=== PATIENT | female | born 1995 ===

== ENCOUNTER 2018-06-30 03:16 | Inpatient (IN) | payer SELFPAY ==
[2018-06-30] MEDS ORDERED: Sodium Chloride 0.9% 10 ML Syringe FLUSH PRN (07:25)
[2018-06-30] MEDS ORDERED: Lidocaine 1% 50 ML MDV INJECT PRN (07:25)
[2018-06-30] MEDS ORDERED: Misoprostol 200 MCG Tab PO PRN (07:25)
[2018-06-30] MEDS ORDERED: Nalbuphine 10 MG/1 ML Vial IVPUSH PRN (07:25)
[2018-06-30] MEDS ORDERED: Tranexamic Acid 1,000 MG in Sodium Chloride 0.9% 100 ML IV PRN (07:25)
[2018-06-30] MEDS ORDERED: Sodium Chloride 0.9% 2.5 ML Syringe FLUSH PRN (07:25)
[2018-06-30] MEDS ORDERED: Water For Irrigation,Sterile 1,000 ML Container IRR PRN (07:25)
[2018-06-30] MEDS ORDERED: Carboprost Tromethamine 250 MCG/1 ML Amp IM PRN (07:25)
[2018-06-30] MEDS ORDERED: Methylergonovine 0.2 MG/1 ML Amp IM PRN (07:25)
[2018-06-30] MEDS ORDERED: Butorphanol 1 MG/ML SDV IVPUSH PRN (07:25)
[2018-06-30] MEDS ORDERED: Oxytocin/0.9 % Sodium Chloride 30 UNIT/500 ML BAG IV SCH (07:30)
[2018-06-30] MEDS: Lactated Ringers 1,000 ML IV SCH ×2 (07:35→08:06)
[2018-06-30] MEDS ORDERED: Acetaminophen 500 MG Tab PO PRN ×2 (08:33)
[2018-06-30] MEDS ORDERED: Bisacodyl 10 MG Supp RECTAL PRN (08:33)
[2018-06-30] MEDS ORDERED: Ibuprofen 400 MG Tab PO PRN (08:33)
[2018-06-30] MEDS ORDERED: Benzocaine/Menthol 20%-0.5% Spray 78 GM Cannister TOP PRN (08:33)
[2018-06-30] MEDS ORDERED: oxyCODONE 5 MG Tab PO PRN (08:33)
[2018-06-30] MEDS ORDERED: Witch Hazel Medicated Pads 40/Jar TOP PRN (08:33)
[2018-06-30] MEDS ORDERED: Lanolin 100% Cream 7 GM Tube TOP PRN (08:33)
--- NOTE | 2018-06-30 08:40 | PCM.LDHP ---
L&D History of Present Illness - General Date of Service: 06/30/18 Admit Problem/Dx: Patient Status Order with Admit Dx/Problem 06/30/18 03:51 Patient Status [ADT] Routine 06/30/18 08:34 Patient Status [ADT] Routine Admission Diagnosis/Problem Admission Diagnosis/Problem - planned 06/30/18 08:35 22yo EDC 06/28/2018 40 2/7 weeks, Come in active labor and delivers prior to getting epidural. A+, RI, GBS neg Source of Information: Patient History Limitations: Reports: No Limitations - History of Present Illness Improves with: Reports: None Worsens with: Reports: None Associated Symptoms: Reports: N - Related Data Allergies/Adverse Reactions: Allergies Allergy/AdvReac Type Severity Reaction Status Date / Time No Known Allergies Allergy Verified 06/30/18 03:46 Home Medications: Home Meds . [No Known Home Meds] 01/09/15 [History] Past Medical History HEENT History: Reports: None Cardiovascular History: Reports: Heart Murmur, Syncope, Other (See Below) Other Cardiovascular History: pt. states, "can feel my heart pounding and beating irregularly at times; get dizzy and weak also when it happens". 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 also states, "have had a heart murmur since I was a baby but it has never bothered me". Respiratory History: Reports: Bronchitis, Recurrent Other Respiratory History: Pt. denies being on any medications for the bronchitis. [employer] History: Reports: Psychiatric History: Reports: None - Infectious Disease History Infectious Disease History: Reports: Other (See Below) Other Infectious Disease History: exposed to pertussis during this - Past Surgical History HEENT Surgical History: Reports: None Social & Family History - Family History Family Medical History: Noncontributory Respiratory: Reports: Asthma Other Respiratory Family Hisory: Pt. states "father has asthma" - Tobacco Use Smoking Status *Q: Never Smoker Second Hand Smoke Exposure: No H&P Review of Systems - Review of Systems: Review Of Systems: See Below General: Reports: No Symptoms HEENT: Reports: No Symptoms Pulmonary: Reports: No Symptoms Cardiovascular: Reports: No Symptoms Gastrointestinal: Reports: No Symptoms Genitourinary: Reports: No Symptoms Musculoskeletal: Reports: No Symptoms Skin: Reports: No Symptoms Psychiatric: Reports: No Symptoms Neurological: Reports: No Symptoms Hematologic/Lymphatic: Reports: No Symptoms Immunologic: Reports: No Symptoms L&D Exam - Exam Exam: See Below - Vital Signs Weight: 77.111 kg - OB Specific Contraction Intensity: Strong Movement: Active Heart Tones: Present Heart Rate (FHR) Variability: Moderate (6-25 bmp) Presentation: Vertex - Ellis Score Ellis Score Cervix Position: Anterior Ellis Score Consistency: Soft Ellis Score Effacement: >80% Ellis Score Dilation: > 5 cm Ellis Score Infant's Station: +1, +2 Ellis Score Total: 13 - Exam General: Alert, Oriented, Cooperative, Mild Distress HEENT: Hearing Intact Lungs: Clear to Auscultation, Normal Respiratory Effort Cardiovascular: Regular Rate, Regular Rhythm, Normal S1, Normal S2 Rectal Exam: Deferred Genitourinary: Normal external exam, Cervical dilitation Back Exam: Normal Inspection, Full Range of Motion Extremities: Normal Inspection, Normal Range of Motion, Non-Tender, No Pedal Edema, Normal Capillary Refill Skin: Warm, Dry, Intact Neurological: Cranial Nerves Intact, Reflexes Equal Bilateral, Strength Equal Bilateral, Normal Speech, Normal Tone Psychiatric: Alert, Normal Affect, Normal Mood - Patient Data Lab Results Last 24 hrs: Laboratory Results - last 24 hr 06/30/18 Range/Units 07:35 WBC 7.90 (4.0-11.0) K/uL RBC 4.03 L (4.30-5.90) M/uL Hgb 11.0 L (12.0-16.0) g/dL Hct 34.2 L (36.0-46.0) % MCV 84.9 (80.0-98.0) fL MCH 27.3 (27.0-32.0) pg MCHC 32.2 (31.0-37.0) g/dL RDW Std Deviation 45.5 (28.0-62.0) fl RDW Coeff of Chad 15 (11.0-15.0) % Plt Count 146 L (150-400) K/uL MPV 9.40 (7.40-12.00) fL Nucleated RBC % 0.0 /100WBC Nucleated RBCs # 0 K/uL Result Diagrams: 06/30/18 07:35 - Problem List (1) Supervision of normal IUP (intrauterine ) in multigravida SNOMED Code(s): 521927410, 548081201, 966053533 ICD Code: Z34.80 - ENCOUNTER FOR SUPRVSN OF NORMAL , UNSP TRIMESTER Status: Acute Priority: High Current Visit: Yes Qualifiers: Trimester: third trimester Qualified Code(s): Z34.83 - Encounter for supervision of other normal , third trimester (2) (normal spontaneous vaginal delivery) SNOMED Code(s): 80982067 ICD Code: O80 - ENCOUNTER FOR FULL-TERM UNCOMPLICATED DELIVERY Status: Acute Priority: High Current Visit: Yes Problem List Initiated/Reviewed/Updated: Yes Orders Last 24hrs: Active Orders 24 hr Category Date Time Status Patient Status [ADT] Routine ADT 06/30/18 08:34 Ordered Heart Tones [RC] CONTINUOUS Care 06/30/18 07:25 Inactive Non Stress Test [RC] PER UNIT ROUTINE Care 06/30/18 03:51 Inactive Non Stress Test [RC] PER UNIT ROUTINE Care 06/30/18 07:25 Inactive May Shower [RC] ASDIRECTED Care 06/30/18 07:25 Inactive May Shower [RC] ASDIRECTED Care 06/30/18 08:33 Ordered Notify Provider [RC] PRN Care 06/30/18 07:25 Inactive Up ad Makayla [RC] ASDIRECTED Care 06/30/18 03:51 Inactive Up ad Makayla [RC] ASDIRECTED Care 06/30/18 07:25 Inactive Up ad Makayla [RC] ASDIRECTED Care 06/30/18 08:33 Ordered Vaginal Exam [RC] Click to Edit Care 06/30/18 03:51 Inactive Vaginal Exam [RC] PRN Care 06/30/18 07:25 Inactive Vital Signs [RC] PER UNIT ROUTINE Care 06/30/18 03:51 Inactive Vital Signs [RC] PER UNIT ROUTINE Care 06/30/18 07:25 Inactive Vital Signs [RC] PER UNIT ROUTINE Care 06/30/18 08:33 Ordered Regular Diet [DIET] Diet 06/30/18 Breakfast Ordered TYPE AND SCREEN [BBK] Routine Lab 06/30/18 07:35 Stop Req Acetaminophen [Tylenol Extra Strength] Med 06/30/18 08:33 Ordered 1,000 mg PO Q4H PRN Acetaminophen [Tylenol Extra Strength] Med 06/30/18 08:33 Ordered 500 mg PO Q4H PRN Benzocaine/Menthol [Dermoplast Pain Relief 20%-0.5% Med 06/30/18 08:33 Ordered Icard] 78 gm TOP ASDIRECTED PRN Bisacodyl [Dulcolax] Med 06/30/18 08:33 Ordered 10 mg RECTAL ONETIME PRN Docusate Sodium [Colace] Med 06/30/18 08:33 Ordered 100 mg PO BID PRN Ibuprofen [Motrin] Med 06/30/18 08:33 Ordered 400 mg PO Q4H PRN Ibuprofen [Motrin] Med 06/30/18 08:33 Ordered 800 mg PO Q6H PRN Lanolin [Lansinoh HPA] Med 06/30/18 08:33 Ordered See Dose Instructions TOP ASDIRECTED PRN [place] [Tucks] Med 06/30/18 08:33 Ordered 1 pad TOP ASDIRECTED PRN oxyCODONE Med 06/30/18 08:33 Ordered 5 mg PO Q2H PRN Assess Lochia [WOMSER] Per Unit Routine Oth 06/30/18 08:33 Ordered Assess Uterine Involution [WOMSER] Per Unit Routine Oth 06/30/18 08:33 Ordered Peripheral IV Discontinue [OM.PC] Routine Oth 06/30/18 08:33 Ordered Resuscitation Status Routine Resus Stat 06/30/18 08:33 Ordered Medication Orders Acetaminophen (Tylenol Extra Strength) 500 mg PO Q4H PRN PRN Reason: Pain Acetaminophen (Tylenol Extra Strength) 1,000 mg PO Q4H PRN PRN Reason: Pain Benzocaine/Menthol (Dermoplast Pain Relief 20%-0.5% Icard) 78 gm TOP ASDIRECTED PRN PRN Reason: Perineal Comfort Measure Bisacodyl (Dulcolax) 10 mg RECTAL ONETIME PRN PRN Reason: Constipation Docusate Sodium (Colace) 100 mg PO BID PRN PRN Reason: Constipation Emollient Ointment (Lansinoh Hpa) 0 gm TOP ASDIRECTED PRN PRN Reason: Sore Nipples Ibuprofen (Motrin) 400 mg PO Q4H PRN PRN Reason: Pain Ibuprofen (Motrin) 800 mg PO Q6H PRN PRN Reason: Pain Oxycodone HCl (Oxycodone) 5 mg PO Q2H PRN PRN Reason: Pain [place] (Tucks) 1 pad TOP ASDIRECTED PRN PRN Reason: comfort care Assessment/Plan Comment:: Labor/Delivery A: 22yo EDC 06/28/2018 40 2/7 weeks, Come in active labor and delivers prior to getting epidural. A+, RI, GBS neg. of viable female APGARS 8/10, Wt : 8#7oz, EBL 100cc, Intact perineum, mother and baby left in stable condition for recovery P: Admit, tried to get epidural, Dr Arias updated. Routine pp plan of care
--- NOTE | 2018-06-30 08:42 | PCM.DEL ---
L & D Note - General Info Date of Service: 06/30/18 Mother's Due Date: 06/28/18 - Delivery Note Labor: Spontaneous Delivery Outcome: Livebirth Infant Delivery Method: Spontaneous Vaginal Delivery-Single Delivery Mode: Spontaneous Presentation: Vertex Nuchal Cord: None Anesthesia Type: None Amniotic Fluid Description: Meconium Stained Episiotomy Type: None Laceration: None Placenta: Intact, Spontaneous Cord: 3 Vessels Estimated Blood Loss: 100 Score 1 min: 8 Score 5 min: 10 Second Stage Interventions: Reports: Pushing Effectively - General Info Date of Service: 06/30/18 Admission Dx/Problem (Free Text): Patient Status Order with Admit Dx/Problem 06/30/18 03:51 Patient Status [ADT] Routine 06/30/18 08:34 Patient Status [ADT] Routine Admission Diagnosis/Problem Admission Diagnosis/Problem - planned 06/30/18 08:35 22yo EDC 06/28/2018 40 2/7 weeks, Come in active labor and delivers prior to getting epidural. A+, RI, GBS neg Functional Status: Reports: Pain Controlled - Review of Systems General: Reports: No Symptoms HEENT: Reports: No Symptoms Pulmonary: Reports: No Symptoms Cardiovascular: Reports: No Symptoms Gastrointestinal: Reports: No Symptoms Genitourinary: Reports: No Symptoms Musculoskeletal: Reports: No Symptoms Skin: Reports: No Symptoms Neurological: Reports: No Symptoms Psychiatric: Reports: No Symptoms - Patient Data Weight - Most Recent: 77.111 kg I&O - Last 24 Hours: Intake & Output 06/29/18 06/30/18 06/30/18 22:59 06:59 14:59 Intake Total 1000 Balance 1000 Lab Results Last 24 Hours: Laboratory Results - last 24 hr 06/30/18 Range/Units 07:35 WBC 7.90 (4.0-11.0) K/uL RBC 4.03 L (4.30-5.90) M/uL Hgb 11.0 L (12.0-16.0) g/dL Hct 34.2 L (36.0-46.0) % MCV 84.9 (80.0-98.0) fL MCH 27.3 (27.0-32.0) pg MCHC 32.2 (31.0-37.0) g/dL RDW Std Deviation 45.5 (28.0-62.0) fl RDW Coeff of Chad 15 (11.0-15.0) % Plt Count 146 L (150-400) K/uL MPV 9.40 (7.40-12.00) fL Nucleated RBC % 0.0 /100WBC Nucleated RBCs # 0 K/uL Med Orders - Current: Current Medications Acetaminophen (Tylenol Extra Strength) 500 mg PO Q4H PRN PRN Reason: Pain Acetaminophen (Tylenol Extra Strength) 1,000 mg PO Q4H PRN PRN Reason: Pain Benzocaine/Menthol (Dermoplast Pain Relief 20%-0.5% [place]) 78 gm TOP ASDIRECTED PRN PRN Reason: Perineal Comfort Measure Bisacodyl (Dulcolax) 10 mg RECTAL ONETIME PRN PRN Reason: Constipation Docusate Sodium (Colace) 100 mg PO BID PRN PRN Reason: Constipation Emollient Ointment (Lansinoh Hpa) 0 gm TOP ASDIRECTED PRN PRN Reason: Sore Nipples Ibuprofen (Motrin) 400 mg PO Q4H PRN PRN Reason: Pain Ibuprofen (Motrin) 800 mg PO Q6H PRN PRN Reason: Pain Oxycodone HCl (Oxycodone) 5 mg PO Q2H PRN PRN Reason: Pain [place] (Tucks) 1 pad TOP ASDIRECTED PRN PRN Reason: comfort care Discontinued Medications Butorphanol Tartrate (Stadol) 1 mg IVPUSH Q1H PRN PRN Reason: Pain Carboprost Tromethamine (Hemabate Ds) 250 mcg IM ASDIRECTED PRN PRN Reason: Post Hemorrhage Tranexamic Acid 1,000 mg/ (Sodium Chloride) 110 mls @ 660 mls/hr IV ONETIME PRN PRN Reason: Bleeding Lactated Ringer's (Ringers, Lactated) 1,000 mls @ 150 mls/hr IV ASDIRECTED [facility] Last Admin: 06/30/18 08:06 Dose: 999 mls/hr Oxytocin/Sodium Chloride (Oxytocin 30 Unit/500 Ml-Ns) 30 unit in 500 mls @ 250 mls/hr IV TITRATE [facility] Lidocaine HCl (Xylocaine 1%) 50 ml INJECT ONETIME PRN PRN Reason: Laceration repair Methylergonovine Maleate (Methergine) 0.2 mg IM ASDIRECTED PRN PRN Reason: Post Hemorrhage Misoprostol (Cytotec) 200 mcg PO ONETIME PRN PRN Reason: Post Hemorrhage Nalbuphine HCl (Nubain) 10 mg IVPUSH Q1H PRN PRN Reason: Pain (severe 7-10) Sodium Chloride (Saline Flush) 10 ml FLUSH ASDIRECTED PRN PRN Reason: Keep Vein Open Sodium Chloride (Saline Flush) 2.5 ml FLUSH ASDIRECTED PRN PRN Reason: Keep Vein Open Sterile Water (Sterile Water For Irrigation) 1,000 ml IRR ASDIRECTED PRN PRN Reason: delivery - Exam General: Alert, Oriented, Cooperative, No Acute Distress Lungs: Clear to Auscultation, Normal Respiratory Effort Cardiovascular: Regular Rate, Regular Rhythm, No Murmurs GI/Abdominal Exam: Soft, Non-Tender (Female) Exam: Normal External Exam, Normal Bimanual Exam, Vaginal Bleeding Back Exam: Normal Inspection, Full Range of Motion Extremities: Normal Inspection, Normal Range of Motion, Non-Tender, No Pedal Edema, Normal Capillary Refill Skin: Warm, Dry, Intact Wound/Incisions: Healing Well Neurological: No New Focal Deficit, Normal Speech, Normal Tone, Strength Equal Bilateral Psy/Mental Status: Alert, Normal Affect, Normal Mood - Problem List & Annotations (1) Supervision of normal IUP (intrauterine ) in multigravida SNOMED Code(s): 808795182, 587621931, 146437840 Code(s): Z34.80 - ENCOUNTER FOR SUPRVSN OF NORMAL , UNSP TRIMESTER Status: Acute Priority: High Current Visit: Yes Qualifiers: Trimester: third trimester Qualified Code(s): Z34.83 - Encounter for supervision of other normal , third trimester (2) (normal spontaneous vaginal delivery) SNOMED Code(s): 42770084 Code(s): O80 - ENCOUNTER FOR FULL-TERM UNCOMPLICATED DELIVERY Status: Acute Priority: High Current Visit: Yes - Problem List Review Problem List Initiated/Reviewed/Updated: Yes - My Orders Last 24 Hours: My Active Orders 06/30/18 08:33 May Shower [RC] ASDIRECTED Up ad Makayla [RC] ASDIRECTED Vital Signs [RC] PER UNIT ROUTINE Acetaminophen [Tylenol Extra Strength] 1,000 mg PO Q4H PRN Acetaminophen [Tylenol Extra Strength] 500 mg PO Q4H PRN Benzocaine/Menthol [Dermoplast Pain Relief 20%-0.5% [place]] 78 gm TOP ASDIRECTED PRN Bisacodyl [Dulcolax] 10 mg RECTAL ONETIME PRN Docusate Sodium [Colace] 100 mg PO BID PRN Ibuprofen [Motrin] 400 mg PO Q4H PRN Ibuprofen [Motrin] 800 mg PO Q6H PRN Lanolin [Lansinoh HPA] See Dose Instructions TOP ASDIRECTED PRN [place] [Tucks] 1 pad TOP ASDIRECTED PRN oxyCODONE 5 mg PO Q2H PRN Assess Lochia [WOMSER] Per Unit Routine Assess Uterine Involution [WOMSER] Per Unit Routine Peripheral IV Discontinue [OM.PC] Routine Resuscitation Status Routine 06/30/18 08:34 Patient Status [ADT] Routine 06/30/18 08:38 CBC W/O DIFF,HEMOGRAM [HEME] Routine TYPE AND SCREEN [BBK] Routine 06/30/18 Breakfast Regular Diet [DIET] - Plan Plan:: Labor/Delivery A: 22yo EDC 06/28/2018 40 2/7 weeks, Come in active labor and delivers prior to getting epidural. A+, RI, GBS neg. of viable female APGARS 8/10, Wt : 8#7oz, EBL 100cc, Intact perineum, mother and baby left in stable condition for recovery P: Admit, tried to get epidural, Dr Arias updated. Routine pp plan of care
[2018-06-30] MEDS: Docusate Sodium 100 MG Cap PO PRN ×2 (08:49→20:58)
[2018-06-30] MEDS: Ibuprofen 800 MG Tab PO PRN ×3 (08:50→20:58)
--- NOTE | 2018-07-01 08:16 | PCM.DCSUM1 ---
Discharge Summary - Hospital Course Free Text/Narrative:: Discharge home with routine post instructions. Follow up in 6 weeks or sooner if needed. Diagnosis: Stroke: No - Discharge Data Discharge Date: 07/01/18 Discharge Disposition: DC/Tfer to [facility] Condition: Good - Discharge Diagnosis/Problem(s) (1) Supervision of normal IUP (intrauterine ) in multigravida SNOMED Code(s): 117984017, 706389320, 435567410 ICD Code: Z34.80 - ENCOUNTER FOR SUPRVSN OF NORMAL , UNSP TRIMESTER Status: Acute Priority: High Current Visit: Yes Qualifiers: Trimester: third trimester Qualified Code(s): Z34.83 - Encounter for supervision of other normal , third trimester (2) (normal spontaneous vaginal delivery) SNOMED Code(s): 14391069 ICD Code: O80 - ENCOUNTER FOR FULL-TERM UNCOMPLICATED DELIVERY Status: Acute Priority: High Current Visit: Yes - Patient Instructions Diet: Usual Diet as Tolerated Activity: As Tolerated, Partial Weight Bearing, Rest and Relax Today Driving: May Drive Today Showering/Bathing: May Shower Notify Provider of: Fever, Increased Pain, Swelling and Redness, Nausea and/or Vomiting Other/Special Instructions: Discharge home with routine post instructions. Follow up in 6 weeks or sooner if needed. - Discharge Plan Home Medications: Home Meds . [No Known Home Meds] 01/09/15 [History] Referrals: [facility] [Outside] Wendy Mosqueda CNM [Mid-] - 08/11/18 10:45 am - General Info Date of Service: 07/01/18 Admission Dx/Problem (Free Text: Patient Status Order with Admit Dx/Problem 06/30/18 03:51 Patient Status [ADT] Routine 06/30/18 08:34 Patient Status [ADT] Routine Admission Diagnosis/Problem Admission Diagnosis/Problem - planned 06/30/18 08:35 22yo EDC 06/28/2018 40 2/7 weeks, Come in active labor and delivers prior to getting epidural. A+, RI, GBS neg Functional Status: Reports: Pain Controlled, Tolerating Diet, Ambulating, Urinating - Review of Systems General: Reports: No Symptoms HEENT: Reports: No Symptoms Pulmonary: Reports: No Symptoms Cardiovascular: Reports: No Symptoms Gastrointestinal: Reports: No Symptoms Genitourinary: Reports: No Symptoms Musculoskeletal: Reports: No Symptoms Skin: Reports: No Symptoms Neurological: Reports: No Symptoms Psychiatric: Reports: No Symptoms - Patient Data Vitals - Most Recent: Last Vital Signs Temp 36.4 C 06/30/18 19:30 Pulse 59 L 07/01/18 06:00 Resp 16 07/01/18 06:00 BP 108/68 07/01/18 06:00 Pulse Ox 97 07/01/18 06:00 Weight - Most Recent: 77.111 kg Lab Results - Last 24 hrs: Laboratory Results - last 24 hr 06/30/18 Range/Units 07:35 Blood Type A POSITIVE Antibody Screen NEGATIVE Med Orders - Current: Current Medications Acetaminophen (Tylenol Extra Strength) 500 mg PO Q4H PRN PRN Reason: Pain Acetaminophen (Tylenol Extra Strength) 1,000 mg PO Q4H PRN PRN Reason: Pain Benzocaine/Menthol (Dermoplast Pain Relief 20%-0.5% [place]) 78 gm TOP ASDIRECTED PRN PRN Reason: Perineal Comfort Measure Bisacodyl (Dulcolax) 10 mg RECTAL ONETIME PRN PRN Reason: Constipation Docusate Sodium (Colace) 100 mg PO BID PRN PRN Reason: Constipation Last Admin: 06/30/18 20:58 Dose: 100 mg Emollient Ointment (Lansinoh Hpa) 0 gm TOP ASDIRECTED PRN PRN Reason: Sore Nipples Ibuprofen (Motrin) 400 mg PO Q4H PRN PRN Reason: Pain Ibuprofen (Motrin) 800 mg PO Q6H PRN PRN Reason: Pain Last Admin: 06/30/18 20:58 Dose: 800 mg Oxycodone HCl (Oxycodone) 5 mg PO Q2H PRN PRN Reason: Pain [place] (Tucks) 1 pad TOP ASDIRECTED PRN PRN Reason: comfort care Discontinued Medications Butorphanol Tartrate (Stadol) 1 mg IVPUSH Q1H PRN PRN Reason: Pain Carboprost Tromethamine (Hemabate Ds) 250 mcg IM ASDIRECTED PRN PRN Reason: Post Hemorrhage Tranexamic Acid 1,000 mg/ (Sodium Chloride) 110 mls @ 660 mls/hr IV ONETIME PRN PRN Reason: Bleeding Lactated Ringer's (Ringers, Lactated) 1,000 mls @ 150 mls/hr IV ASDIRECTED [facility] Last Admin: 06/30/18 08:06 Dose: 999 mls/hr Oxytocin/Sodium Chloride (Oxytocin 30 Unit/500 Ml-Ns) 30 unit in 500 mls @ 250 mls/hr IV TITRATE [facility] Last Admin: 06/30/18 08:19 Dose: 250 mls/hr Lidocaine HCl (Xylocaine 1%) 50 ml INJECT ONETIME PRN PRN Reason: Laceration repair Methylergonovine Maleate (Methergine) 0.2 mg IM ASDIRECTED PRN PRN Reason: Post Hemorrhage Misoprostol (Cytotec) 200 mcg PO ONETIME PRN PRN Reason: Post Hemorrhage Nalbuphine HCl (Nubain) 10 mg IVPUSH Q1H PRN PRN Reason: Pain (severe 7-10) Sodium Chloride (Saline Flush) 10 ml FLUSH ASDIRECTED PRN PRN Reason: Keep Vein Open Sodium Chloride (Saline Flush) 2.5 ml FLUSH ASDIRECTED PRN PRN Reason: Keep Vein Open Sterile Water (Sterile Water For Irrigation) 1,000 ml IRR ASDIRECTED PRN PRN Reason: delivery - Exam General: Reports: Alert, Oriented, Cooperative, No Acute Distress Lungs: Reports: Clear to Auscultation, Normal Respiratory Effort Cardiovascular: Reports: Regular Rate, Regular Rhythm, No Murmurs GI/Abdominal Exam: Soft, Non-Tender (Female) Exam: Normal Speculum Exam, Vaginal Bleeding Rectal (Female) Exam: Deferred Back Exam: Reports: Normal Inspection, Full Range of Motion Extremities: Normal Inspection, Normal Range of Motion, Non-Tender, No Pedal Edema, Normal Capillary Refill Skin: Reports: Warm, Dry, Intact Wound/Incisions: Reports: Healing Well Neurological: Reports: No New Focal Deficit, Normal Speech, Normal Tone, Strength Equal Bilateral Psy/Mental Status: Reports: Alert, Normal Affect, Normal Mood
[2018-07-01] MEDS: Docusate Sodium 100 MG Cap PO PRN (10:14)
[2018-07-01] MEDS: Ibuprofen 800 MG Tab PO PRN (10:15)
[2018-07-01 10:55] VITALS: BP 94/55
== END 2018-07-01 11:43 | disposition critical access hospital (66) | DRG 775 ==
LOC: MW.OBCHECK 03:16 → MW.OB 03:18 → MW.OBCHECK 07:25 → MW.OB 07:25 → OBSVTOIN 08:34
PROVIDERS: ADMIT Obstetrics & Gynecology; ATTEND Obstetrics & Gynecology
PROC: 10E0XZZ Delivery of Products of Conception, External Approach (ICD-10-PCS; principal; 2018-06-30)
DX: O77.0 Labor and delivery complicated by meconium in amniotic fluid (principal); Z3A.40 40 weeks gestation of pregnancy; Z37.0 Single live birth
CPT/HCPCS: 36415; 59025; 59409; 85027; 86850; 86900; 86901; A9270-GY; J2590; J7120